=== PATIENT | female | born 1975 | race Caucasian/White ===

== ENCOUNTER 2022-09-17 13:06 | Outpatient (CLI) | payer BC | END 2022-09-17 13:07 | disposition home or self-care (01) | LOC: CSHCT 13:06 | PROVIDERS: ATTEND Family Medicine | DX: R82.998 Other abnormal findings in urine (principal); R10.9 Unspecified abdominal pain | CPT/HCPCS: 74176 ==

== ENCOUNTER 2024-04-06 09:42 | Outpatient (CLI) | payer BC | END 2024-04-06 09:43 | disposition home or self-care (01) | LOC: CSHMAMMO 09:42 | PROVIDERS: ATTEND Family Medicine | DX: Z12.31 Encounter for screening mammogram for malignant neoplasm of breast (principal) | CPT/HCPCS: 77063; 77067 ==